=== PATIENT | female | born 1960 | race Two or more races ===

== ENCOUNTER 2018-04-07 18:09 | Emergency (ER) | payer SELFPAY ==
[~2018-04-07] VITALS: Ht 167.6 cm; Wt 61.2 kg
[2018-04-07] MEDS ORDERED: IV RINGERS,LACTATED 1000ML 1,000 ML IV SCH (18:33)
--- NOTE | 2018-04-07 18:39 | PHYS DOC ---
Past Medical History Past Medical History: Diabetes-Type II Adult General Chief Complaint Chief Complaint: ABDOMINAL PAIN HPI HPI Patient is a 58 year old female who presents with nausea and vomiting. This started yesterday. One episode of emesis yesterday, 2 episodes today. Small amount of blood at the end of emesis today. Feels like there is a burning sensation in the back of her throat that started with the emesis today. No blood from her rectum or black tarry stools. No recent changes in weight. Patient reports that her fingerstick blood sugar is still doing well at home. No previous history of this. No blood thinner medication. Patient denies any abdominal pain. Food seems to make the symptoms worse. Nothing by mouth makes the nausea better. No recent travel. No unusual foods. No sick contacts.[] Review of Systems Review of Systems Constitutional: Denies fever or chills [] Eyes: Denies change in visual acuity, redness, or eye pain [] HENT: Denies nasal congestion or sore throat [] Respiratory: Denies cough or shortness of breath [] Cardiovascular: No chest pain or palpitations[] GI: See history of present illness[] : Denies dysuria or hematuria [] Musculoskeletal: Denies back pain or joint pain [] Integument: Denies rash or skin lesions [] Neurologic: Denies headache, focal weakness or sensory changes [] Endocrine: Denies polyuria or polydipsia [] All other systems were reviewed and found to be within normal limits, except as documented in this note. Current Medications Current Medications Current Medications Medications (Trade) Dose Ordered Sig/Umesh Start Time Stop Time Status Last Admin Dose Admin Metoclopramide HCl (Reglan Vial) 10 mg 1X ONCE 04/07/18 18:45 04/07/18 18:46 DC 04/07/18 19:05 10 MG Pantoprazole Sodium (PROTONIX VIAL for IV PUSH) 40 mg 1X ONCE 04/07/18 18:45 04/07/18 18:46 DC 04/07/18 19:08 40 MG Ringer's Solution 1,000 ml @ 1,000 mls/hr Q1H 04/07/18 18:33 04/07/18 19:32 DC 04/07/18 19:05 1,000 MLS/HR Allergies Allergies Allergies Coded Allergies Type Severity Reaction Last Updated Verified No Known Drug Allergies 04/07/18 No Physical Exam Physical Exam Constitutional: Well developed, well nourished, no acute distress, non-toxic appearance. [] HENT: Normocephalic, atraumatic, bilateral external ears normal, oropharynx moist, no oral exudates, nose normal. [] Eyes: PERRLA, EOMI, conjunctiva normal, no discharge. [] Neck: Normal range of motion, no tenderness, supple, no stridor. [] Cardiovascular:Heart rate regular rhythm, no murmur [] Lungs & Thorax: Bilateral breath sounds clear to auscultation [] Abdomen: Bowel sounds normal, soft, no tenderness, no masses, no pulsatile masses. [] Skin: Warm, dry, no erythema, no rash. [] Back: No tenderness, no CVA tenderness. [] Extremities: No tenderness, no cyanosis, no clubbing, ROM intact, no edema. [] Neurologic: Alert and oriented X 3, normal motor function, normal sensory function, no focal deficits noted. [] Psychologic: Affect normal, judgement normal, mood normal. [] Current Patient Data Vital Signs Vital Signs Date Time Temp Pulse Resp B/P (MAP) Pulse Ox O2 Delivery O2 Flow Rate FiO2 04/07/18 18:15 98.0 85 20 169/112 (131) 99 Room Air 98.0 Lab Values Laboratory Tests Test 04/07/18 18:15 04/07/18 18:28 04/07/18 18:37 Urine Collection Type Unknown Urine Color Yellow Urine Clarity Clear Urine pH 6.5 Urine Specific [place] 1.010 Urine Protein Negative mg/dL (NEG-TRACE) Urine Glucose (UA) Negative mg/dL (NEG) Urine Ketones (Stick) Negative mg/dL (NEG) Urine Blood Moderate (NEG) Urine Nitrite Negative (NEG) Urine Bilirubin Negative (NEG) Urine Urobilinogen Dipstick 0.2 mg/dL (0.2 mg/dL) Urine Leukocyte Esterase Negative (NEG) Urine RBC 20-40 /HPF (0-2) Urine WBC 0 /HPF (0-4) Urine Squamous Epithelial Cells Few /LPF Urine Bacteria 0 /HPF (0-FEW) Urine Test Negative (NEG) White Blood Count 8.6 x10^3/uL (4.0-11.0) Red Blood Count 4.67 x10^6/uL (3.50-5.40) Hemoglobin 14.7 g/dL (12.0-15.5) Hematocrit 41.8 % (36.0-47.0) Mean Corpuscular Volume 90 fL (79-100) Mean Corpuscular Hemoglobin 32 pg (25-35) Mean Corpuscular Hemoglobin Concent 35 g/dL (31-37) Red Cell Distribution Width 13.3 % (11.5-14.5) Platelet Count 259 x10^3/uL (140-400) Neutrophils (%) (Auto) 56 % (31-73) Lymphocytes (%) (Auto) 35 % (24-48) Monocytes (%) (Auto) 7 % (0-9) Eosinophils (%) (Auto) 2 % (0-3) Basophils (%) (Auto) 1 % (0-3) Neutrophils # (Auto) 4.8 x10^3uL (1.8-7.7) Lymphocytes # (Auto) 3.0 x10^3/uL (1.0-4.8) Monocytes # (Auto) 0.6 x10^3/uL (0.0-1.1) Eosinophils # (Auto) 0.1 x10^3/uL (0.0-0.7) Basophils # (Auto) 0.1 x10^3/uL (0.0-0.2) Prothrombin Time 12.3 SEC (11.7-14.0) Prothrombin Time INR 0.9 (0.8-1.1) Sodium Level 141 mmol/L (136-145) Potassium Level 4.0 mmol/L (3.5-5.1) Chloride Level 103 mmol/L (98-107) Carbon Dioxide Level 28 mmol/L (21-32) Anion Gap 10 (6-14) Blood Urea Nitrogen 14 mg/dL (7-20) Creatinine 0.7 mg/dL (0.6-1.0) Estimated GFR (Cockcroft-Gault) 86.6 BUN/Creatinine Ratio 20 (6-20) Glucose Level 112 mg/dL (70-99) H Calcium Level 10.2 mg/dL (8.5-10.1) H Total Bilirubin 0.4 mg/dL (0.2-1.0) Aspartate Amino Transferase (AST) 20 U/L (15-37) Alanine Aminotransferase (ALT) 31 U/L (14-59) Alkaline Phosphatase 93 U/L (46-116) Troponin I Quantitative < 0.017 ng/mL (0.000-0.055) Total Protein 8.3 g/dL (6.4-8.2) H Albumin 4.4 g/dL (3.4-5.0) Albumin/Globulin Ratio 1.1 (1.0-1.7) Lipase 196 U/L (73-393) Acetone Level Neg (NEG) Glucose (Fingerstick) 108 mg/dL (70-99) H Laboratory Tests 04/07/18 18:28 Laboratory Tests 04/07/18 18:28 EKG EKG EKG showed a sinus rhythm at 73 bpm, normal axis, QTC of 416 ms, no ST elevations, no old EKG available for comparison.[] Radiology/Procedures Radiology/Procedures [] Course & Med Decision Making Course & Med Decision Making Pertinent Labs and Imaging studies reviewed. (See chart for details) Medical decision making: There is no evidence of by mouth intolerance, no diabetic ketoacidosis, no acute coronary syndrome, no evidence of obstruction based on history. No significant anemia. ED course: Patient arrived, was placed in bed, in tolerated exam well. Patient had no episodes of nausea vomiting while in the emergency department. Patient was feeling better with the occasions given in the emergency department. Chest findings with the patient and her family who voiced understanding. All questions were answered. Patient was discharged in improved condition.[] Dragon Disclaimer Dragon Disclaimer This electronic medical record was generated, in whole or in part, using a voice recognition dictation system. Departure Departure Impression: Primary Impression: Nausea and vomiting Disposition: 01 HOME, SELF-CARE Condition: GOOD Patient Instructions: Nausea and Vomiting Additional Instructions: Drink plenty of fluids, frequent small sips. No fatty foods, no milk, no pepper for the next 48 hours. Eat a diet rich in carbohydrates such as bananas, rice, applesauce, and toast. Follow-up with your doctor in 2 days. Return to the ER if unable to tolerate liquids or any other concerns. Scripts Lansoprazole (PREVACID) 15 Mg Capsule. 15 MG PO DAILY, #20 CAP Prov: WAYNE PATEL DO 04/07/18 Metoclopramide Hcl (REGLAN) 10 Mg Tablet 10 MG PO QIDACHS, #30 TAB 0 Refills Prov: AMANDAWAYNE ALEXANDER 04/07/18 Problem Qualifiers Primary Impression: Nausea and vomiting Vomiting type: unspecified Vomiting Intractability: non-intractable Qualified Codes: R11.2 - Nausea with vomiting, unspecified WAYNE PATEL DO Apr 07, 2018 18:39
[2018-04-07 18:45] LABS: BILIRUBIN,URINE NEGATIVE (NEG); CLARITY,URINE CLEAR; COLOR,URINE YELLOW; NITRITE,URINE NEGATIVE (NEG); PH,URINE 6.5; PROTEIN,URINE NEGATIVE (NEG-TRACE); UROBILINOGEN,URINE 0.2 mg/dL (0.2 mg/dL)
[2018-04-07] MEDS ORDERED: PANTOPRAZOLE IV PUSH 40 MG VIAL. IVP ONE (18:45)
[2018-04-07] MEDS ORDERED: METOCLOPRAMIDE HCL 10 MG/2 ML VIAL. IV ONE (18:45)
[2018-04-07 18:46] LABS: BASO # 0.1 x10^3/uL (0.0-0.2); BASO % 1 % (0-3); EOS # 0.1 x10^3/uL (0.0-0.7); EOS % 2 % (0-3); HEMATOCRIT 41.8 % (36.0-47.0); HEMOGLOBIN 14.7 g/dL (12.0-15.5); LYMPH % 35 % (24-48); MEAN CORPUSCULAR HEMOGLOBIN 32 pg (25-35); MEAN CORPUSCULAR HGB CONC 35 g/dL (31-37); MEAN CORPUSCULAR VOLUME 90 fL (79-100); MONO # 0.6 x10^3/uL (0.0-1.1); MONO % 7 % (0-9); NEUT # 4.8 x10^3uL (1.8-7.7); NEUT % 56 % (31-73); PLATELET COUNT 259 x10^3/uL (140-400); RED BLOOD COUNT 4.67 x10^6/uL (3.50-5.40); RED CELL DISTRIBUTION WIDTH 13.3 % (11.5-14.5); WHITE BLOOD COUNT 8.6 x10^3/uL (4.0-11.0)
--- NOTE | 2018-04-07 18:50 | EKG ---
[facility] [address] [place] [address] Test Date: 2018-04-07 Test Time: 18:46:31 Pat Name: ROSALINO GARZA Department: Room: Gender: F Dispatch Manager: TW : [id number] Requested By: WAYNE PATEL Order Number: [id number] Reading MD: Measurements Intervals Ray Rate: 73 P: 6 [place]: 184 QRS: 34 QRSD: 100 T: 57 QT: 374 QTc: 416 Interpretive Statements SINUS RHYTHM NO SPECIFIC ECG ABNORMALITIES RI6.01 No previous ECG available for comparison
[2018-04-07 18:51] LABS: ANION GAP 10 (6-14); BLOOD UREA NITROGEN 14 mg/dL (7-20); BUN/CREATININE RATIO 20 (6-20); CALCIUM 10.2 mg/dL (8.5-10.1); CARBON DIOXIDE 28 mmol/L (21-32); CHLORIDE 103 mmol/L (98-107); CREATININE 0.7 mg/dL (0.6-1.0); GFR 86.6; GLUCOSE 112 mg/dL (70-99); SODIUM 141 mmol/L (136-145)
[2018-04-07 18:55] LABS: PROTHROMBIN TIME PATIENT 12.3 SEC (11.7-14.0)
[2018-04-07 18:55] LABS: SQUAMOUS EPITHELIAL CELL,UR FEW /LPF
[2018-04-07 18:56] LABS: BACTERIA,URINE 0 /HPF (0-FEW); RBC,URINE 20-40 /HPF (0-2); WBC,URINE 0 /HPF (0-4)
[2018-04-07 18:57] LABS: ALBUMIN 4.4 g/dL (3.4-5.0); ALBUMIN/GLOBULIN RATIO 1.1 (1.0-1.7); ALK PHOS 93 U/L (46-116); ALT (SGPT) 31 U/L (14-59); AST (SGOT) 20 U/L (15-37); LIPASE 196 U/L (73-393); TOTAL BILIRUBIN 0.4 mg/dL (0.2-1.0); TOTAL PROTEIN 8.3 g/dL (6.4-8.2)
[2018-04-07 19:04] LABS: ACETONE NEG (NEG)
[2018-04-07 19:42] LABS: U PREG PATIENT NEGATIVE (NEG)
[2018-04-07] MEDS ORDERED: METO10TA81 PO (19:59)
[2018-04-07] MEDS ORDERED: LANS15CA78 PO (19:59)
[2018-04-07 20:04] VITALS: BP 131/61
== END 2018-04-07 20:12 | disposition home or self-care (01) ==
LOC: ER 18:09
DX: R11.2 Nausea with vomiting, unspecified (principal); E11.9 Type 2 diabetes mellitus without complications
CPT/HCPCS: 36415; 80053; 81001; 81025; 82010; 82962; 83690; 84484; 85025; 85610; 93005; 96361; 96374; 96375; 99284; C9113; J2765; J7120

== ENCOUNTER 2021-02-11 23:11 | Emergency (ER) | payer SELFPAY ==
[~2021-02-11] VITALS: Ht 160 cm; Wt 60.1 kg
[~2021-02-11 23:11] MED LIST: LANS15CA73 PO; METO10TA81 PO
[2021-02-12 00:22] VITALS: BP 163/78
--- NOTE | 2021-02-12 01:15 | PHYS DOC ---
Past Medical History Past Medical History: Diabetes-Type II Past Surgical History: Appendectomy, Hysterectomy Additional Past Surgical Histo: BREAST AUGMENTATION Smoking Status: Never Smoker Alcohol Use: None Drug Use: None General Adult EDM: Chief Complaint: SKIN RASH/ABSCESS HPI: HPI: Patient is a 61 year old female with a greater than 5-1/2-year history of a small round rash lesion on her left back. No changes today. She has seen her primary care physician reportedly in the past for this, and she is reportedly been diagnosed with a "fungus." She is not currently taking any medication for this. She is unable to articulate what medications, if any, were prescribed for her condition. She is using [id number] cortisone cream. She reports that the area does burn and itch on occasion. There is no swelling, redness, drainage. No trauma or injury. No fevers or chills. No changes in any symptoms at all today. She has not taken anything else for discomfort. Her is very angry at the notion that she should take a topical antifungal medication or that she may need to see dermatology. Though the patient and the are primarily Maldivian-speaking, I name able to communicate utilizing Maldivian and Indonesian with both of them, and the patient's frequently interrupts the patient during the history. The patient has no other subjective complaints. Review of Systems: Review of Systems: Constitutional: Denies fever or chills. [] Respiratory: Denies cough or shortness of breath. [] Cardiovascular: Denies chest pain or edema. [] GI: Denies abdominal pain, nausea, vomiting, bloody stools or diarrhea. [] Musculoskeletal: Denies back pain or joint pain. [] Integument: Chronic localized skin rash of her left back. Neurologic: Denies headache, focal weakness or sensory changes. [] Heart Score: C/O Chest Pain: No Risk Factors: Risk Factors: DM, Current or recent (<one month) smoker, HTN, HLP, family history of CAD, obesity. Risk Scores: Score 0 - 3: 2.5% MACE over next 6 weeks - Discharge Home Score 4 - 6: 20.3% MACE over next 6 weeks - Admit for Clinical Observation Score 7 - 10: 72.7% MACE over next 6 weeks - Early Invasive Strategies Allergies: Allergies: Allergies Coded Allergies Type Severity Reaction Last Updated Verified No Known Drug Allergies 04/07/18 No Physical Exam: PE: Constitutional: Well developed, well nourished, no acute distress, non-toxic appearance. [] HENT: Normocephalic, atraumatic Neck: Trachea midline, no tenderness Cardiovascular: Well-perfused appearing, no peripheral edema Lungs & Thorax: Respirations are nonlabored. Skin: Warm, dry, no erythema. She has a small, localized, superficial, light pink irregularly shaped lesion of her left upper thoracic flank/back area. There is no fluctuance, there is no induration, there is no soft tissue swelling, there is no tenderness. There is no palpable warmth or erythema. There is no drainage. There are no vesicles, papules, pustules. This lesion does appear to be consistent with superficial tinea. Back: No tenderness, no CVA tenderness. Full range of motion. No midline tenderness or step-offs. No discernible palpable tenderness. Extremities: No limb deformity, no peripheral edema. Neurologic: Wake, alert, conversant, ambulatory with a steady gait, speech is clear and fluent. Psychologic: Flat affect. Current Patient Data: Vital Signs: Vital Signs Date Time Temp Pulse Resp B/P (MAP) Pulse Ox O2 Delivery O2 Flow Rate FiO2 02/12/21 00:22 98.6 72 16 163/78 (106) 98 Room Air 98.6 EKG: EKG: [] Radiology/Procedures: Radiology/Procedures: [] Course & Med Decision Making: Course & Med Decision Making I tried to discuss the differential diagnosis and plan of care with the patient and her . I explained that her lesion does in fact appear to be most consistent with tinea. I recommend topical antifungal treatment. I do not recommend an oral antifungal at this time, though I did explain that this may be ultimately required. I did explain that she should follow-up with her primary care physician as well as outpatient dermatology. She may ultimately require biopsy or skin scraping to confirm the diagnosis. I did kindly explained that the emergency department is not the venue for skin biopsy or skin scraping diagnostics for this type of lesion. The patient's is very upset and outwardly angry that I suggested that they should see a morning news producer and go back to her primary care physician. The patient did report that the area felt like it was burning, and I offered to prescribe pain medication, which she declined. The patient and her became upset and decided to elope prior to receiving formal discharge paperwork. However, there was no indication for further emergency department work-up or exams. Patient and her refused to provide me with a pharmacy to which I could prescribe antifungal treatment. I did attempt to provide return precautions, but they did not wait to receive any formal discharge paperwork or written instructions. Dragon Disclaimer: Dragon Disclaimer: This electronic medical record was generated, in whole or in part, using a voice recognition dictation system. Departure Departure Impression: Primary Impression: Tinea corporis Disposition: LEFT AWOL/ELOPED Condition: STABLE Referrals: NO PCP (PCP) Patient Instructions: Body Ringworm Additional Instructions: Use the medication as directed for the full course. Your condition is chronic. Your condition a does not appear to be most consistent with a ringworm/fungal infection, however you may need to see a morning news producer for further evaluation. You may need a skin biopsy. I recommend you contact your primary care physician who is been treating this for further discussion as well. Return for any acute changes in any symptoms, if you develop any swelling, open wounds, bleeding, drainage, fever 100.4 or higher or any other concerns. ERIS YANES DO Feb 12, 2021 01:15
== END 2021-02-12 01:18 | disposition left against medical advice (07) ==
LOC: ER 23:11
DX: B35.4 Tinea corporis (principal); E11.9 Type 2 diabetes mellitus without complications
CPT/HCPCS: 99282